=== PATIENT | female | born 1980 | race African-American/Black ===

== ENCOUNTER 2018-12-28 14:03 | Emergency (ER) | payer MEDICARE, MEDICAID ==
[~2018-12-28] VITALS: Ht 160 cm; Wt 78.9 kg
[~2018-12-28 14:03] MED LIST: HYDR12.527
[2018-12-28 14:22] VITALS: BP 145/95
[2018-12-28 14:43] LABS: Basophils # (auto) 0.1 uL; Eosinophils # (auto) 0 uL; Neutrophils # (auto) 5.7 uL; Red Blood Cells 4.65 10^6/uL (4.0-5.20)
[2018-12-28 14:45] LABS: Basophils % (auto) 0.8 % (0.0-2.0); Eosinophils % (auto) 0.6 % (0.0-7.0); Hematocrit 32.1 % (36.0-46.0); Hemoglobin 9.8 g/dL (12.2-16.2); Lymphocytes # (auto) 2.4 uL; Lymphocytes % (auto) 27.3 % (10.0-50.0); Mean Corpuscular Hemoglobin 21.1 pg (28.0-32.0); Mean Corpuscular Hgb Conc. 30.6 g/dL (32.0-36.0); Monocytes # (auto) 0.7 uL; Monocytes % (auto) 7.3 % (0.0-12.0); Platelet Count (auto) 540 10^3/uL (140-450); White Blood Cell 8.9 10^3/uL (4.4-10.8)
[2018-12-28 14:49] LABS: Urine Bacteria NONE SEEN /hpf (None Seen); Urine Blood Negative /uL (Negative); Urine Mucus FEW (None Seen); Urine Specific Gravity 1.026 (1.001-1.035); Urine WBC 4 /hpf (0 - 5)
[2018-12-28 15:02] LABS: Albumin 3.7 g/dL (3.4-5.0); Anion Gap 8 (5-15); Blood Urea Nitrogen 11 mg/dL (7-18); Calcium 8.9 mg/dL (8.5-10.1); Carbon Dioxide 25 mmol/L (21-32); Chloride 105 mmol/L (98-107); Glucose 96 mg/dL (74-106); Potassium 3.2 mmol/L (3.5-5.1); Sodium 138 mmol/L (136-145)
[2018-12-28 15:09] LABS: Alanine Aminotransferase 17 U/L (13-56); Alkaline Phosphatase 82 U/L (45-117); Aspartate Aminotransferase 14 U/L (15-37); BUN/Creatinine Ratio 10.7; Bilirubin, Total 0.4 mg/dL (0.2-1.0); GFR African American 77 mL/min; GFR Non-African American 63 mL/min; Total Protein 7.9 g/dL (6.4-8.2)
[2018-12-28] MEDS ORDERED: POTASSIUM CHL 20 Meq TABLET PO ONE (16:15)
== END 2018-12-28 16:23 | disposition home or self-care (01) ==
LOC: ER 14:03
DX: R00.2 Palpitations (principal); D64.9 Anemia, unspecified; I10 Essential (primary) hypertension; Z86.73 Personal history of transient ischemic attack (TIA), and cerebral infarction without residual deficits; Z90.89 Acquired absence of other organs; Z88.6 Allergy status to analgesic agent
CPT/HCPCS: 36415; 71046; 80053; 81001; 81025; 83735; 83880; 84484; 85025; 93005; 94761

== ENCOUNTER 2020-04-23 15:13 | Emergency (ER) | payer MEDICARE, MEDICAID ==
[~2020-04-23] VITALS: Ht 160 cm; Wt 80.3 kg
[~2020-04-23 15:13] MED LIST changes: -HYDR12.527; +HYDR12.55
[2020-04-23 15:25] VITALS: BP 144/100
[2020-04-23 16:51] LABS: Basophils # (auto) 0 10 ^3/uL (0-0.2); Basophils % (auto) 0.5 % (0.0-2.0); Eosinophils # (auto) 0.1 10 ^3/uL (0-0.8); Eosinophils % (auto) 1.3 % (0.0-7.0); Hematocrit 38.6 % (36.0-46.0); Hemoglobin 12.3 g/dL (12.2-16.2); Lymphocytes # (auto) 2.4 10 ^3/uL (0.4-5.4); Lymphocytes % (auto) 31.3 % (10.0-50.0); Mean Corpuscular Hgb Conc. 31.9 g/dL (32.0-36.0); Mean Corpuscular Volume 84.6 fL (80.0-100.0); Monocytes # (auto) 0.4 10 ^3/uL (0-1.3); Monocytes % (auto) 5.9 % (0.0-12.0); Neutrophils # (auto) 4.6 10 ^3/uL (1.6-8.6); Nucleated Red Blood Cells % 0.1 %; Platelet Count (auto) 374 10^3/uL (140-450); Red Blood Cells 4.57 10^6/uL (4.0-5.20); White Blood Cell 7.5 10^3/uL (4.4-10.8)
[2020-04-23 17:02] LABS: Albumin 3.3 g/dL (3.4-5.0); BUN/Creatinine Ratio 16.5; Calcium 7.8 mg/dL (8.5-10.1); Potassium 3.7 mmol/L (3.5-5.1)
[2020-04-23 17:05] LABS: Bilirubin, Total 0.3 mg/dL (0.2-1.0); Total Protein 7.3 g/dL (6.4-8.2)
== END 2020-04-23 18:34 | disposition home or self-care (01) ==
LOC: ER 15:13
DX: O20.9 Hemorrhage in early pregnancy, unspecified (principal); O99.810 Abnormal glucose complicating pregnancy; E16.2 Hypoglycemia, unspecified; O16.2 Unspecified maternal hypertension, second trimester; Z3A.16 16 weeks gestation of pregnancy
CPT/HCPCS: 36415; 76856; 80053; 82962; 84702; 85025

== ENCOUNTER → 2023-11-01 | Outpatient (CLI) | payer MEDICARE, MEDICAID ==
[2023-11-01 12:08] LABS: Urine Bacteria FEW /hpf (None Seen); Urine Blood Negative /uL (Negative); Urine Clarity Clear (Clear); Urine Color Yellow (Yellow); Urine Mucus FEW (None Seen); Urine Protein, UAD Negative (Negative); Urine Specific Gravity 1.019 (1.001-1.035); Urine WBC 1 /hpf (0 - 5)
[2023-11-02 08:06] LABS: RPR Non Reactive (Non Reactive)
[2023-11-02 08:55] LABS: Hepatitis B Surface Antigen Negative (Negative)
[2023-11-02 09:16] LABS: Hepatitis A Ab IgM Negative
[2023-11-02 09:17] LABS: Hepatitis B Core IgM Negative
[2023-11-02 09:18] LABS: Hepatitis C Antibody Negative (Negative)
[2023-11-02 23:07] LABS: Chlamydia Trachomatis, NAA Negative (Negative); Neisseria gonorrhoeae, NAA Negative (Negative)
== END | disposition home or self-care (01) ==
LOC: LAB 11:30
PROVIDERS: ATTEND Emergency Medicine
DX: Z20.2 Contact with and (suspected) exposure to infections with a predominantly sexual mode of transmission (principal); Z11.4 Encounter for screening for human immunodeficiency virus [HIV]; Z72.89 Other problems related to lifestyle; F19.20 Other psychoactive substance dependence, uncomplicated
CPT/HCPCS: 36415; 80074; 81001; 86592; 86703

== ENCOUNTER → 2024-01-29 | Outpatient (CLI) | payer MEDICARE, MEDICAID ==
[2024-01-30 07:07] LABS: RPR Non Reactive (Non Reactive)
[2024-01-30 16:06] LABS: Chlamydia Trachomatis, NAA Negative (Negative); Neisseria gonorrhoeae, NAA Negative (Negative)
== END | disposition home or self-care (01) ==
LOC: LAB 11:50
PROVIDERS: ATTEND Emergency Medicine
DX: Z11.3 Encounter for screening for infections with a predominantly sexual mode of transmission (principal); Z20.2 Contact with and (suspected) exposure to infections with a predominantly sexual mode of transmission; Z11.4 Encounter for screening for human immunodeficiency virus [HIV]; Z72.89 Other problems related to lifestyle; F19.20 Other psychoactive substance dependence, uncomplicated; Z72.51 High risk heterosexual behavior; Z79.899 Other long term (current) drug therapy
CPT/HCPCS: 86592; 86703

== ENCOUNTER → 2024-03-12 | Outpatient (CLI) | payer MEDICARE, MEDICAID | END | disposition home or self-care (01) | LOC: XYW 08:00 | PROVIDERS: ATTEND Student in an Organized Health Care Education/Training Program | DX: I37.1 Nonrheumatic pulmonary valve insufficiency (principal); I11.9 Hypertensive heart disease without heart failure | CPT/HCPCS: 93306 ==

== ENCOUNTER → 2024-04-23 | Outpatient (CLI) | payer MEDICARE, MEDICAID ==
[~2024-04-23] VITALS: Ht 160 cm; Wt 73.0 kg
[2024-04-23] MEDS: ADENOSINE 61 MG in GIVE UN-DILUTED 0 ML IV STA (12:28)
== END | disposition home or self-care (01) ==
LOC: XYW 10:23
PROVIDERS: ATTEND Student in an Organized Health Care Education/Training Program
DX: R07.9 Chest pain, unspecified (principal); I10 Essential (primary) hypertension; I63.9 Cerebral infarction, unspecified
CPT/HCPCS: 78452; 93017; A9500; J0153

== ENCOUNTER → 2024-06-21 | Outpatient (CLI) | payer MEDICARE, MEDICAID ==
[2024-06-21 14:53] LABS: Alanine Aminotransferase 16 U/L (7-40); Albumin 4.2 g/dL (3.2-4.8); Alkaline Phosphatase 68 U/L (46-116); Anion Gap 7 (5-15); Aspartate Aminotransferase 15 U/L (13-40); BUN/Creatinine Ratio 10.7 (10.0-20.0); Bilirubin, Total 0.5 mg/dL (0.2-1.0); Blood Urea Nitrogen 8 mg/dL (9-23); Calcium 9.2 mg/dL (8.7-10.4); Carbon Dioxide 24 mmol/L (20-31); Chloride 109 mmol/L (98-107); Glucose 102 mg/dL (74-106); Potassium 3.4 mmol/L (3.5-5.1); Sodium 140 mmol/L (136-145)
[2024-06-21 14:54] LABS: Total Protein 7.1 g/dL (5.7-8.2)
== END | disposition home or self-care (01) ==
LOC: LAB 13:32
PROVIDERS: ATTEND Internal Medicine
DX: Z01.812 Encounter for preprocedural laboratory examination (principal)
CPT/HCPCS: 36415; 80053

== ENCOUNTER → 2024-07-15 | Outpatient (CLI) | payer MEDICARE, MEDICAID ==
[2024-07-16 07:06] LABS: RPR Non Reactive (Non Reactive)
[2024-07-16 09:06] LABS: HSV 1 IgG Antibody Reactive (Non Reactive); HSV 2 IgG Antibody Reactive (Non Reactive)
== END | disposition home or self-care (01) ==
LOC: LAB 09:33
PROVIDERS: ATTEND Nurse Practitioner
DX: Z11.3 Encounter for screening for infections with a predominantly sexual mode of transmission (principal); B17.9 Acute viral hepatitis, unspecified; Z20.2 Contact with and (suspected) exposure to infections with a predominantly sexual mode of transmission
CPT/HCPCS: 86592; 86695; 86696; 86703

== ENCOUNTER → 2024-11-26 | Outpatient (CLI) | payer MEDICARE, MEDICAID ==
[2024-11-27 05:16] LABS: HSV 1 IgG Antibody Reactive (Non Reactive); HSV 2 IgG Antibody Reactive (Non Reactive)
[2024-11-28 20:06] LABS: HBV as IU/mL HBV DNA not detected IU/mL (.)
== END | disposition home or self-care (01) ==
LOC: LAB 10:01
PROVIDERS: ATTEND Registered Nurse
DX: Z11.3 Encounter for screening for infections with a predominantly sexual mode of transmission (principal); A74.9 Chlamydial infection, unspecified; Z20.2 Contact with and (suspected) exposure to infections with a predominantly sexual mode of transmission; Z79.899 Other long term (current) drug therapy
CPT/HCPCS: 36415; 86695; 86696; 86703; 86780; 87517

== ENCOUNTER → 2025-01-14 | Outpatient (CLI) | payer MEDICARE, MEDICAID | END | disposition home or self-care (01) | LOC: LAB 08:59 | PROVIDERS: ATTEND Nurse Practitioner Family | DX: Z20.2 Contact with and (suspected) exposure to infections with a predominantly sexual mode of transmission (principal); B99.8 Other infectious disease; N89.8 Other specified noninflammatory disorders of vagina | CPT/HCPCS: 36415; 86703; 86780 ==

== ENCOUNTER 2025-01-23 11:41 | Outpatient (CLI) | payer MEDICARE, MEDICAID ==
[2025-01-23 12:31] LABS: Basophils # (auto) 0.1 10 ^3/uL (0-0.2); Eosinophils # (auto) 0 10 ^3/uL (0-0.8); Hemoglobin 8.6 g/dL (12.2-16.2); White Blood Cell 4.8 10^3/uL (4.4-10.8)
[2025-01-23 12:33] LABS: Basophils % (auto) 1.2 % (0.0-2.0); Hematocrit 29.1 % (36.0-46.0); Lymphocytes # (auto) 1.6 10 ^3/uL (0.4-5.4); Lymphocytes % (auto) 33.6 % (10.0-50.0); Mean Corpuscular Hemoglobin 18.7 pg (28.0-32.0); Mean Corpuscular Hgb Conc. 29.7 g/dL (32.0-36.0); Mean Corpuscular Volume 62.9 fL (80.0-100.0); Monocytes # (auto) 0.2 10 ^3/uL (0-1.3); Monocytes % (auto) 4.7 % (0.0-12.0); Neutrophils # (auto) 2.9 10 ^3/uL (1.6-8.6); Neutrophils % (auto) 59.5 % (37.0-80.0); Nucleated Red Blood Cells % 0.1 %; Platelet Count (auto) 324 10^3/uL (140-450); Red Blood Cells 4.62 10^6/uL (4.0-5.20)
[2025-01-23 12:38] LABS: Alanine Aminotransferase 12 U/L (7-40); Alkaline Phosphatase 68 U/L (46-116); Anion Gap 9 (5-15); Aspartate Aminotransferase 14 U/L (13-40); BUN/Creatinine Ratio 15.7 (10.0-20.0); Blood Urea Nitrogen 11 mg/dL (9-23); Calcium 9.6 mg/dL (8.7-10.4); Carbon Dioxide 21 mmol/L (20-31); Glucose 78 mg/dL (74-106); Potassium 3.9 mmol/L (3.5-5.1); Sodium 138 mmol/L (136-145); Total Protein 7.9 g/dL (5.7-8.2); Triglycerides 56 mg/dL (< 150)
[2025-01-23 12:39] LABS: % Iron Saturation 5.7 % (15-50); Albumin 4.8 g/dL (3.2-4.8); Bilirubin, Total 0.6 mg/dL (0.2-1.0); Chloride 108 mmol/L (98-107); Cholesterol 188 mg/dL (< 200); HDL Cholesterol 69 mg/dL (40-59); LDL Cholesterol 108 mg/dL (< 100); Red Cell Distribution Width 20.3 % (11.8-14.3)
[2025-01-23 12:43] LABS: Folate (Folic Acid) 21.37 ng/mL (>5.38)
[2025-01-23 13:21] LABS: Ferritin 2.8 ng/mL (10-291)
[2025-01-24 11:08] LABS: Hepatitis A Ab IgM Negative; Hepatitis B Core IgM Negative (Negative); Hepatitis B Surface Antigen Negative (Negative); Hepatitis C Antibody Negative (Negative)
[2025-01-24 12:58] LABS: Urine Bacteria FEW /hpf (None Seen); Urine Blood 2+ /uL (Negative); Urine Color Yellow (Yellow); Urine Mucus FEW (None Seen); Urine Protein, UAD Negative (Negative); Urine Specific Gravity 1.023 (1.001-1.035); Urine Squamous Epithelial Cell MOD /hpf (<5); Urine Urobilinogen Normal (Negative); Urine WBC 3 /HPF (0-5)
[2025-01-24 12:59] LABS: Urine Clarity Hazy (Clear)
== END 2025-01-23 17:00 | disposition home or self-care (01) ==
LOC: LAB 11:41
PROVIDERS: ATTEND Nurse Practitioner Family
DX: I10 Essential (primary) hypertension (principal); N39.0 Urinary tract infection, site not specified; E78.5 Hyperlipidemia, unspecified; D50.9 Iron deficiency anemia, unspecified; R53.1 Weakness; Z12.11 Encounter for screening for malignant neoplasm of colon; Z11.3 Encounter for screening for infections with a predominantly sexual mode of transmission; Z79.899 Other long term (current) drug therapy
CPT/HCPCS: 36415; 80053; 80061; 80074; 81001; 82274; 82306; 82607; 82728; 82746; 83036; 83540; 83550; 84443; 85025; 86703; 87086